=== PATIENT | female | born 1975 | race African-American/Black ===

== ENCOUNTER 2019-12-27 13:41 | Inpatient (IN) | payer BC, OTHER ==
[2019-12-27 15:17] LABS: BHCG - Serum Negative (NEGATIVE); Pregs Control Background? CLEAR/WHITE (CLR/WHITE); Pregs Control Bar Appear? YES (CONTROL BAR)
[2019-12-27 15:26] LABS: ALT (SGPT) 10 U/L (8-55); AST (SGOT) 15 U/L (5-34); Albumin 3.8 g/dL (3.5-5.0); Alkaline Phosphatase 63 U/L (40-110); Anion Gap 15 mmol/L (10-20); BUN (Urea Nitrogen) 14 mg/dL (7.0-18.7); Bilirubin, Total 0.2 mg/dL (0.2-1.2); Calc. Creatinine Clearance 0 mL/min (70-130); Calcium 8.7 mg/dL (7.8-10.44); Carbon Dioxide 21 mmol/L (22-29); Chloride 108 mmol/L (98-107); Estimated GFR-MDRD Greater than 90; Globulin 2.7 g/dL (2.4-3.5); Glucose 96 mg/dL (70-105); Lipase 33 U/L (8-78); Protein, Total 6.5 g/dL (6.0-8.3); Sodium 140 mmol/L (136-145)
[2019-12-27] MEDS ORDERED: Pantoprazole 40 MG VIAL ONE (15:32)
[2019-12-27] MEDS ORDERED: Ondansetron ODT 4 MG TAB PO PRN (15:34)
[2019-12-27] MEDS ORDERED: Senokot S 8.6-50 MG TAB PO PRN (15:34)
[2019-12-27] MEDS ORDERED: Acetaminophen 325 MG TAB PO PRN (15:34)
[2019-12-27] MEDS ORDERED: Calcium Carbonate 500 MG ChewTAB PO PRN (15:34)
[2019-12-27] MEDS ORDERED: Ondansetron PF 4 MG/2 ML Vial IVP PRN (15:34)
[2019-12-27 15:41] LABS: Hemoglobin 4.8 g/dL (12.0-16.0); Mean Corpuscular HGB CONC 30.9 g/dL (32.0-36.0); Mean Corpuscular Hemoglobin 21.4 pg (27.0-31.0); Mean Corpuscular Volume 69.3 fL (78.0-98.0); Mean Platelet Volume 9.4 fL (7.4-10.4); Platelet Count 283 thou/uL (130-400); RBC Distribution Width 18.2 % (11.5-14.5); Red Blood Cell (RBC) Count 2.24 mill/uL (4.20-5.40); White Blood Cell (WBC) Count 12.6 thou/uL (4.8-10.8)
[2019-12-27 15:44] LABS: Reticulocyte Count 6.1 % (0.5-1.5)
[2019-12-27 15:49] LABS: INR-International Normal Ratio 1.1; PTT 26.3 sec (22.9-36.1); Prothrombin Time 14.1 sec (12.0-14.7)
[2019-12-27 16:00] LABS: Iron 8 ug/dL (50-170); Iron Binding Capacity, Total 345 mcg/dL (265-497)
[2019-12-27 16:02] LABS: Anisocytosis SLIGHT = 6-15 cells (100X) (0-5/hpf); Band 4 % (5-11); Eosinophils 2 % (0-10); Hypochromia MODERATE=16-30 cells (100X) (0-5/hpf); Lymphocytes 13 % (21-51); MDiff Complete? YES; Microcytosis MODERATE=15-30 cells (100X) (0-5/hpf); Monocytes 3 % (0-10); Neutrophil 75 % (42-75); Platelet Morphology Comment Appears Adequate; Polychromasia MODERATE = 3-4 cells (100X) (0-2/hpf); Reactive Lymphocytes 3 % (0-10); Reflex for Review?? NO; Target Cells SLIGHT = 2-5 cells (100X) (0-1/hpf); Tear Drops SLIGHT = 2-5 cells (100X) (0-1/hpf)
--- NOTE | 2019-12-27 16:42 | PDOC.HHP ---
Hospitalist HPI - History of Present Illness weakness, abnormal lab values History of Present Illness: PCP: RAJESH Manuel The patient is a 44-year-old female with past medical history significant for hypertension. She was currently not on any blood pressure medications prior to today. She went to her PCP earlier today after she had been having ongoing fatigue with some light headedness and shortness of breath with exertion. She states that this started last week but became more prominent over the past 3 days. She denies chest pain, hematemesis, hematochezia, abdominal pain, bowel or bladder changes. It is questionable whether she had melanotic stools, she does state that they are a little darker than usual this past month. Patient does report taking BC powder for years, sometimes multiple times per day for hip pain. Her last menstrual cycle was on 12/11/2019 and states was a little heavier than usual with more cramping. At her PCP office today blood pressure was elevated and so they started her on hydrochlorothiazide 25 mg daily and also hydroxyzine 50 mg as needed for acute anxiety. She also received a referral to [facility] for a prolonged QT interval and some reports of lightheadedness. After lab work resulted showed her hemoglobin is 4.9 she was asked to report to the ER. ED Course: VITAL SIGNS ThuDec 27, 2019 13:42 ADRIAN Pickering Dannette BP: 132/83, Pulse: 108, Resp: 19, Temp: 98.2 (Oral), O2 sat: 100 on (Room Air), Time: 12/27/2019 13:42. VITAL SIGNS ThuDec 27, 2019 14:02 ADRIAN De La Cruz Taylor BP: 138/76, MAP: 106, Pulse: 102, Resp: 16, Pain: 0, O2 sat: 100 on (Room Air), Time: 12/27/2019 14:02. VITAL SIGNS ThuDec 27, 2019 15:55 ADRIAN De La Cruz Taylor BP: 146/72, MAP: 114, Pulse: 99, Resp: 20, Pain: 0, O2 sat: 100 on (Room Air), Time: 12/27/2019 15:55. VITAL SIGNS ThuDec 27, 2019 16:35 ADRIAN De La Cruz Taylor BP: 164/89, MAP: 112, Pulse: 105, Resp: 16, Pain: 0, O2 sat: 100 on (Room Air), Time: 12/27/2019 16:35. Today in the ER the patient had lab work, EKG, and rectal exam. She had 80 mg of Protonix IV administered and 1 unit of blood. GI was consulted for the patient downstairs. Hospitalist ROS - Review of Systems Constitutional: reports: weakness, malaise Respiratory: reports: SOB with excertion. denies: shortness of breath Cardiovascular: denies: chest pain, palpitations All other systems reviewed; all pertinent +/- noted in HPI/Subj - Medication Medications: NKDA Current medications: BC Headache Powder packet : Strength - 650 mg-195 mg-32 mg : ORAL Patient Dose: UNK 3 times a day.UNKNOWN DOSE Hospitalist History - Past Medical History Source: patient Cardiac: reports: HTN - Past Surgical History Past Surgical History: reports: Tubal Ligation - Family History Family History: reports: cardiac disorder, diabetes mellitus - Social History Smoking Status: Never smoker Alcohol: reports: None Drugs: reports: none Living Situation: With Family Activity level: independent ambulation - Exam General Appearance: NAD, awake alert Eye: PERRL, anicteric sclera ENT: normocephalic atraumatic, no oropharyngeal lesions ENT - other findings: Pale conjunctiva Neck: supple, no lymphadenopathy Heart: RRR, no murmur, no gallops, no rubs, normal peripheral pulses Respiratory: CTAB, no wheezes, no rales, no ronchi, normal chest expansion Gastrointestinal: soft, non-tender, non-distended, normal bowel sounds Extremities: no cyanosis, no clubbing, no edema Skin: normal turgor Neurological: normal sensation to touch, no weakness Musculoskeletal: normal tone, normal strength, no muscle wasting, generalized weakness Psychiatric: normal affect, normal behavior, A&O x 3 Hospitalist Results - Labs Result Diagrams: 12/28/19 03:54 12/28/19 03:54 Lab results: WBC 12.6 thou/uL (4.8-10.8) H 12/27/19 15:29 Hgb 4.8 g/dL (12.0-16.0) L* 12/27/19 15: Hct 15.5 % (36.0-47.0) L 12/27/19 15:29 MCV 69.3 fL (78.0-98.0) L 12/27/19 15:29 Plt Count 283 thou/uL (130-400) 12/27/19 15:29 Band Neuts % (Manual) 4 % (5-11) L 12/27/19 15:29 Sodium 140 mmol/L (136-145) 12/27/19 14:56 Potassium 4.0 mmol/L (3.5-5.1) 12/27/19 14:56 Chloride 108 mmol/L (98-107) H 12/27/19 14:56 Carbon Dioxide 21 mmol/L (22-29) L 12/27/19 14:56 BUN 14 mg/dL (7.0-18.7) 12/27/19 14:56 Creatinine 0.71 mg/dL (0.6-1.1) 12/27/19 14:56 Glucose 96 mg/dL (70-105) 12/27/19 14:56 Calcium 8.7 mg/dL (7.8-10.44) 12/27/19 14:56 Total Bilirubin 0.2 mg/dL (0.2-1.2) 12/27/19 14:56 AST 15 U/L (5-34) 12/27/19 14:56 ALT 10 U/L (8-55) 12/27/19 14:56 Alkaline Phosphatase 63 U/L (40-110) 12/27/19 14:56 Troponin I Less than 0.010 ng/mL (< 0.028) 12/27/19 15:29 Serum Total Protein 6.5 g/dL (6.0-8.3) 12/27/19 14:56 Albumin 3.8 g/dL (3.5-5.0) 12/27/19 14:56 Lipase 33 U/L (8-78) 12/27/19 14:56 - EKG Interpretation EKG: Sinus tachycardiareviewed by me - Radiology Interpretation Chest x-ray Status: image reviewed by me Additional Comment: No infiltrate or edema Hospitalist H&P A/P - Problem (1) GI bleed Code(s): K92.2 - GASTROINTESTINAL HEMORRHAGE, UNSPECIFIED Status: Acute (2) Acute blood loss anemia Code(s): D62 - ACUTE POSTHEMORRHAGIC ANEMIA Status: Acute (3) Iron deficiency anemia Code(s): D50.9 - IRON DEFICIENCY ANEMIA, UNSPECIFIED Status: Acute (4) HTN (hypertension) Code(s): I10 - ESSENTIAL (PRIMARY) HYPERTENSION Status: Chronic - Plan Plan: Possible GI bleed FOBT pending GI consultation placed in ER Monitor on telemetry N.p.o. Acute blood loss anemia Iron deficiency anemia 2 units packed cells transfusing IV iron to transfuse IV fluids CBC smear, repeat CBC in a.m. Hypertension Monitor vital signs every 4 hour PRN antihypertensives to be made available GI prophylaxis with Protonix, VTE prophylaxis with SCDs CODE STATUS: Full Surrogate decision maker is her sister, Elaine Hinkle Addendum - Attending - Attending Attestation Date/Time: 12/27/19 1800 Patient is a 44-year-old female with chronic NSAID use presents to the emergency room with with abnormal labs. Her hemoglobin as outpatient was around 4. Over the last 1 month patient has dark bowel movement. She has been feeling generally weak and fatigue. No menorrhagia reported. She denies any family history of anemia or sickle cell anemia. No fever or chills reported. Her hemoglobin in the emergency room was 4.8 with reticulocyte of 6.1 iron of 8 and ferritin of < 2. Due to poor IV access central line was placed in the emergency room. 2 units of PRBC has been ordered. Past medical history reviewed. Mary ient currently on no medications. Denies any tobacco or drug abuse. Vital signs were reviewed on examination lungs were clear to auscultation bilaterallyheart S1-S2 present tachycardia. Neurological examination was nonfocal. EKG showed sinus tachycardia with nonspecific ST-T wave changes. Due to persistent tachycardia patient will be monitored on telemetry. Will continue IV PPIs with gentle hydration. Continue blood transfusion. Peripheral smear review. Recheck hemoglobin in a.m. Transfuse if below 7 patient will require 2-3 days for stabilization I personally evaluated the patient and discussed the management with Nurse practitioner. I agree with the History, Examination, Assessment and Plan documented above with any addition or exceptions noted below.
[2019-12-27] MEDS ORDERED: Lorazepam 1 MG TAB PO SCH (17:30)
--- NOTE | 2019-12-27 18:10 | RAD ---
CHEST ONE VIEW: 12/27/19 HISTORY: Line placement. FINDINGS: Portable supine chest radiograph demonstrates interval placement of left sided vascular catheter. Dis fiordaliza tip appears to terminate over the region of the superior vena cava. Correlate clinically for veno us access. No pneumothorax on the supine projection. Lung volumes are diminished due to poor inspirat ory effort. There does appear to be interstitial opacification in the right perihilar region. IMPRESSION: 1. Left sided vascular catheter as above. Correlate for venous access. 2. No pneumothorax on this supine projection. 3. Diminished lung volumes. Prominence of the interstitium in the right perihilar region may in part be due to atelectasis. Infiltrate cannot be excluded. POS: PPP
[2019-12-27] MEDS ORDERED: Iron, Sodium Ferric Gluconate 250 MG in Sodium Chloride 0.9% 100 ML IVPB SCH (21:00)
[2019-12-27] MEDS: Sodium Chloride 0.9% 1,000 ML IV SCH (21:19)
[2019-12-27] MEDS: Pantoprazole 40 MG VIAL IVP SCH (21:19)
--- NOTE | 2019-12-28 00:31 | CON ---
DATE OF CONSULTATION: 12/27/2019 CHIEF COMPLAINT: Weakness and fatigue. HISTORY OF PRESENT ILLNESS: Ms. Hinkle is a 44-year-old woman, who has had generalized weakness on exertion over the last couple of months. Over the last two days, she has had dizziness and lightheadedness and shortness of breath just walking across the room. She has passed black stools up to twice per day to once every 2 days over the last couple months. She has no abdominal pain or nausea or vomiting or diarrhea or constipation. She has had no red blood in the stool. She has been taking BC Powder three per day for years for left hip pain. She has regular menstrual periods once per month, they last 4 days and have not been heavy. She has not seen a Gynecology over last 20 years. In the emergency room, she was found to have severe anemia with a hemoglobin of 4.8. She was given blood transfusion and proton pump inhibitor. GI was consulted for further evaluation. She does get cramping lower abdominal pain when she has her menstrual periods, but otherwise no abdominal pain. This has been going on for the last 3 months. PAST MEDICAL HISTORY: Hypertension and hip pain. PAST SURGICAL HISTORY: Tubal ligation. FAMILY HISTORY: Negative for GI malignancies. SOCIAL HISTORY: No alcohol, tobacco, or drugs. ALLERGIES: NO KNOWN DRUG ALLERGIES. MEDICATIONS: Prior to admission, BC Powder three times daily. REVIEW OF SYSTEMS: Negative x10 systems reviewed except as stated in the history of present illness. PHYSICAL EXAMINATION: VITAL SIGNS: Temperature 99.4, blood pressure 152/88, and pulse 109. GENERAL: She is in no acute distress. Alert and oriented x3. She is pale. HEENT: Her eyes have no scleral icterus. Oropharynx is clear without lesions. No cervical or supraclavicular lymphadenopathy. LUNGS: Clear to auscultation bilaterally. HEART: Tachycardic. S1 and S2 without murmur. ABDOMEN: Soft, nontender, and nondistended. Bowel sounds are present. EXTREMITIES: No lower extremity edema. RECTAL: Reveals melenic stool in the rectal vault. She has an external hemorrhoid present. NEUROLOGIC: Cranial nerves are grossly intact. LABORATORY DATA: White blood cell count 12.6, hemoglobin 4.8, and platelets 283. INR 1.1. Creatinine 0.71. Iron 8, TIBC 345, ferritin 2, bilirubin 0.2, AST 15, ALT 10, alkaline phosphatase 63, albumin is 3.8, and lipase 33. Retic count is 6.1 and MCV is 69. IMPRESSION: Severe iron deficiency anemia. She has been on BC Powder up to three times per day for chronic left hip pain. She most likely has an upper gastrointestinal bleed secondary to peptic ulcer. We will evaluate for this and other sources. She does have regular menstrual periods that have not been heavier than usual lately. She has melena and melenic stool in the rectal vault. RECOMMENDATIONS: 1. Transfusion. She will be given 3 units. 2. Proton pump inhibitor IV. 3. EGD is scheduled for tomorrow morning at 8 o'clock. Job ID: [id number]
[2019-12-28 00:52] VITALS: BMI 41.8
[2019-12-28 04:22] LABS: Anisocytosis SLIGHT = 6-15 cells (100X) (0-5/hpf); Eosinophils 1 % (0-10); Hemoglobin 6.8 g/dL (12.0-16.0); Lymphocytes 20 % (21-51); MDiff Complete? YES; Mean Corpuscular HGB CONC 32.3 g/dL (32.0-36.0); Mean Corpuscular Hemoglobin 24.5 pg (27.0-31.0); Mean Corpuscular Volume 75.9 fL (78.0-98.0); Mean Platelet Volume 9.3 fL (7.4-10.4); Microcytosis SLIGHT = 6-15 cells (100X) (0-5/hpf); Monocytes 2 % (0-10); Neutrophil 77 % (42-75); Platelet Count 258 thou/uL (130-400); RBC Distribution Width 19.4 % (11.5-14.5); Red Blood Cell (RBC) Count 2.78 mill/uL (4.20-5.40)
[2019-12-28 04:30] LABS: Anion Gap 11 mmol/L (10-20); BUN (Urea Nitrogen) 12 mg/dL (7.0-18.7); Calc. Creatinine Clearance 186 mL/min (70-130); Calcium 8.1 mg/dL (7.8-10.44); Carbon Dioxide 24 mmol/L (22-29); Chloride 109 mmol/L (98-107); Estimated GFR-MDRD Greater than 90; Glucose 85 mg/dL (70-105); Potassium 3.6 mmol/L (3.5-5.1); Sodium 140 mmol/L (136-145)
[2019-12-28] MEDS: Sodium Chloride 0.9% 1,000 ML IV SCH ×3 (05:45→19:50)
[2019-12-28] MEDS ORDERED: Ondansetron HCl/PF 4 MG/2 ML Vial IVP PRN (08:35)
[2019-12-28] MEDS ORDERED: Promethazine HCl 25 MG/ML VIAL SLOW IVP PRN (08:35)
[2019-12-28] MEDS ORDERED: Promethazine HCl 25 MG/ML VIAL IM PRN (08:35)
[2019-12-28] MEDS ORDERED: HYDROmorphone 2 MG/ML VIAL SLOW IVP PRN (08:35)
[2019-12-28] MEDS ORDERED: cloNIDine 0.1 MG TAB PO PRN (08:35)
[2019-12-28] MEDS: Pantoprazole 40 MG VIAL IVP SCH ×2 (09:20→19:45)
--- NOTE | 2019-12-28 09:30 | PDOC.HOSPP ---
- Subjective Encounter Date: 12/28/19 Encounter Time: 09:29 Subjective: Patient has just returned from her EGD. They were able to locate and cauterize an ulcer per nursing. She is still sleepy but states she feels "ok". She received a total of 3 units of PRBC last night. - Objective Vital Signs & Weight: Vital Signs (12 hours) Temp Pulse Resp BP Pulse Ox 12/28/19 09:21 98.0 F 84 20 131/67 100 12/28/19 07:26 98.1 F 88 15 161/96 H 96 12/28/19 05:39 98.4 F 70 18 143/84 H 99 12/28/19 05:06 98.6 F 89 18 135/88 99 12/28/19 00:25 99.0 F 98 18 152/91 H 100 Weight Weight 259 lb 1 oz I&O: 12/27/19 12/28/19 12/29/19 06:59 06:59 06:59 Intake Total 0 Balance 0 Result Diagrams: 12/28/19 16:14 12/28/19 03:54 Additional Labs: Laboratory Tests 12/27/19 12/27/19 15:29 15:29 Iron 8 L TIBC 345 Ferritin Less than 2.00 L Laboratory Tests 12/27/19 12/28/19 15:29 03:54 Hgb 4.8 L* 6.8 L Radiology Reviewed by me: Yes (Chest x-ray negative for infiltrate) EKG Reviewed by me: Yes (Sinus rhythm on telemetry) Hospitalist ROS - Review of Systems Respiratory: reports: SOB with excertion. denies: cough, dry, shortness of breath, hemoptysis, pleuritic pain, sputum, wheezing, other Cardiovascular: denies: chest pain, palpitations, orthopnea, paroxysmal noc. dyspnea, edema, light headedness, other All other systems reviewed; all pertinent +/- noted in HPI/Subj - Medication Medications: Active Medications Generic Name Dose Route Start Last Admin Trade Name Freq PRN Reason Stop Dose Admin Acetaminophen 650 mg 12/27/19 15:34 12/27/19 21:36 Acetaminophen 325 Mg Tab PO 650 mg Q4H PRN Administration Headache/Fever/Mild Pain (1-3) Sodium Chloride 1,000 mls @ 75 mls/hr 12/27/19 15:45 12/28/19 05:45 Normal Saline 0.9% IV Not Given .[id number] ZACARIAS Pantoprazole Sodium 40 mg 12/27/19 21:00 12/28/19 09:20 Pantoprazole 40 Mg Vial IVP 40 mg Q12HR ZACARIAS Administration - Exam General Appearance: NAD General - other findings: sleepy Heart: RRR, no murmur, no gallops, no rubs Respiratory: CTAB, no wheezes, no rales, no ronchi Gastrointestinal: soft, non-tender, non-distended, normal bowel sounds Extremities: no cyanosis, no clubbing Neurological: normal sensation to touch, no new deficit Psychiatric: normal affect, A&O x 3 Hosp A/P (1) GI bleed Code(s): K92.2 - GASTROINTESTINAL HEMORRHAGE, UNSPECIFIED Status: Acute (2) Acute blood loss anemia Code(s): D62 - ACUTE POSTHEMORRHAGIC ANEMIA Status: Acute (3) Iron deficiency anemia Code(s): D50.9 - IRON DEFICIENCY ANEMIA, UNSPECIFIED Status: Acute (4) HTN (hypertension) Code(s): I10 - ESSENTIAL (PRIMARY) HYPERTENSION Status: Chronic (5) Peptic ulcer disease with hemorrhage Code(s): K27.4 - CHRONIC OR UNSP PEPTIC ULCER, SITE UNSP, WITH HEMORRHAGE Status: Acute (6) Morbid obesity with BMI of 40.0-44.9, adult Code(s): E66.01 - MORBID (SEVERE) OBESITY DUE TO EXCESS CALORIES; Z68.41 - BODY MASS INDEX (BMI) 40.0-44.9, ADULT Status: Acute - Plan Will follow H&H to ensure she maintains levels Monitor for further bleeding Monitor VS- stable at this time Allow to progress as tolerated with diet Addendum - Attending - Attending Attestation Date/Time: 12/28/19 183 Patient underwent EGD earlier today that showed large cratered 1.5 to 2 cm duodenal bulb ulcer with active oozing of blood. This was cauterized with good hemostasis. H. pylori testing was sent. Hemoglobin this morning was 6.8. She received another unit of PRBC today. She also received iron infusion last night. Will transfer to medical floor. Continue IV PPIs. Central line for blood draws. Recheck hemoglobin in a.m. Continue other medications as above. Patient was seen and examined. Lungs were clear to auscultation bilaterally. Heart S1-S2 present regular. Abdomen was soft. Left findings were reviewed. I personally evaluated the patient and discussed the management with nurse practitioner. I agree with the History, Examination, Assessment and Plan documented above with any addition or exceptions noted below.
--- NOTE | 2019-12-28 09:41 | OP ---
DATE OF PROCEDURE: 12/28/2019 PROCEDURE PERFORMED: Esophagogastroduodenoscopy with control of hemorrhage and biopsy. INDICATION FOR PROCEDURE: Melena, anemia. DESCRIPTION OF PROCEDURE: After the risks and benefits of the procedure were explained to the patient including risks of bleeding, infection, perforation, reactions to anesthesia, aspiration, and/or pain, informed consent was obtained. The patient was then taken to the endoscopy suite, where she was maneuvered into the left lateral decubitus position, followed by introduction of deep sedation via propofol and anesthesia support. Once adequate sedation was achieved, the standard gastroscope was introduced into the mouth with intubation of the esophagus, stomach, and the proximal small intestines with the findings listed below. The patient tolerated the procedure well with no immediate perioperative complications. Upon conclusion of the procedure, all equipment was removed from the patient and she was transferred to PACU in satisfactory condition. FINDINGS: Esophagus: Normal-appearing mucosa was seen in the proximal, mid, and distal esophagus. There was no evidence of erosions, ulcerations, mass lesions, or active/recent bleeding. Stomach: Normal-appearing mucosa was seen in the gastric cardia at the gastroesophageal junction, fundus, body, greater curvature, and incisura. Increased edema was noted in the prepyloric region and including the pyloric valve, but there were no associated erosions or ulcerations in this particular region. Otherwise, there was no evidence of erosions, ulcerations, mass lesions, or active/recent bleeding. Duodenum: A large cratered ulceration measuring 1.5 to 2 cm was seen immediately upon entry into the duodenal bulb and involving the anterior wall and extending to the distal aspect of the bulb itself, but marginally extending into the second portion of the duodenum/duodenal sweep. The ulcer itself exhibited high-risk stigmata with multiple areas of red spots along with significant erythema along the rim of the ulceration. However, along the distal aspect of the ulcer, active oozing of blood was noted from multiple sites. The high-risk stigmata and these active oozing of bleeding sites were then intervened upon with bipolar cauterization with good hemostasis achieved. There was no bleeding noted at the end of the maneuver. Upon entry into the second portion of the duodenum, normal-appearing mucosa was observed distal to the ulceration. IMPRESSION: 1. A large cratered 1.5 to 2 cm duodenal bulb ulceration was seen with high-risk stigmata and active oozing of blood, now status post bipolar cauterization with good hemostasis achieved. 2. Despite normal-appearing gastric mucosa, random gastric biopsies were taken for evaluation of possible H pylori. RECOMMENDATIONS: 1. Would continue to trend her H and H and transfuse as necessary to maintain an H and H of 10/17. 2. Continue to monitor clinically for signs of active GI bleeding. 3. Would follow up on the biopsy results for possible H pylori and treat with triple therapy if positive. 4. Would refrain from any NSAIDs indefinitely. 5. Continue pantoprazole 40 mg IV b.i.d. 6. Would start the patient on a full liquid diet and then advance as tolerated after 24 hours. 7. Pain control per primary team. We will continue to follow. Please call with any questions. Job ID: [id number]
[2019-12-28] MEDS ORDERED: Ondansetron PF 4 MG/2 ML Vial ONE (10:41)
[2019-12-28] MEDS ORDERED: Labetalol HCl 100 MG/20 ML VIAL ONE (10:41)
[2019-12-28] MEDS ORDERED: PROPOFOL 200 MG/20 ML VIAL ONE (10:41)
[2019-12-28] MEDS ORDERED: Lidocaine 1% PF 5 ML VIAL ONE (10:41)
[2019-12-28 13:15] LABS: SARS-CoV-2 MS2 Positive; SARS-CoV-2 N Gene Negative; SARS-CoV-2 S Gene Negative; SARS-CoV-2 by NAA Not Detected (NotDetected); SARS-CoV-2 orf1ab Negative
[2019-12-28 16:24] LABS: Hemoglobin 7.8 g/dL (12.0-16.0)
[2019-12-29 05:02] LABS: Hemoglobin 7.6 g/dL (12.0-16.0)
[2019-12-29] MEDS: Pantoprazole 40 MG VIAL IVP SCH (08:49)
[2019-12-29 12:03] VITALS: BP 141/86; TEMP 98.4
--- NOTE | 2019-12-29 15:38 | DIS ---
DATE OF ADMISSION: 12/27/2019 DATE OF DISCHARGE: 12/29/2019 DISCHARGE DISPOSITION: Home. FOLLOWUP: 1. Follow up with primary care physician in the next 3 to 4 days. 2. Follow up with GI Clinic in 1 to 2 weeks. 3. Follow up with Hematology Clinic after 1 to 2 weeks. 4. Repeat hemoglobin and hematocrit next week is recommended. Primary care physician advised to follow. The patient was seen and examined on the day of discharge. Denies any new GI bleeding. SIGNIFICANT LABORATORY DATA: 1. Hemoglobin on admission was 4.8, at discharge was 7.6. 2. PT/INR, PTT normal range. 3. Iron profile showed iron of 8, TIBC 345, ferritin of less than 2. 4. Troponin was negative. 5. test was negative. 6. COVID-19 testing was negative. 7. Stool for occult blood was negative. 8. Reticulocyte 6.1. INPATIENT PROCEDURES: On 28 December 2019, the patient underwent EGD that showed large cratered 1.5 to 2 cm duodenal bulb ulceration with high-risk stigmata and active oozing of blood, status post cauterization. Random gastric biopsies were obtained. Gastric mucosa was normal. DISCHARGE MEDICATIONS: 1. Protonix 40 mg b.i.d. 2. Ferrous sulfate 325 mg b.i.d. 3. Other medications were left unchanged. 4. The patient was advised to discontinue NSAIDs. BRIEF HOSPITAL COURSE: The patient is a 44-year-old female with chronic NSAID use, presented to the emergency room with generalized weakness and abnormal labs. She was found to have hemoglobin around 4. She also reported dark bowel movement over the last month or so. Please refer to the history and physical for further details. The patient was admitted to the hospital with a diagnosis of GI bleeding secondary to GI blood loss. She received total of 3 units of PRBC along with 1 bag of IV iron. She underwent EGD as discussed above. She has done well overnight. She was started on IV PPIs on admission that has been transitioned to oral. The patient has been cleared by Gastroenterology for discharge. FINAL DIAGNOSES: 1. GI bleeding secondary to large duodenal ulcer with active bleeding. 2. Acute blood loss anemia. 3. Iron deficiency anemia. 4. Hypertension. 5. Morbid obesity with a BMI of 41.8. 6. Generalized weakness and fatigue secondary to above. 7. Hypochromic microcytic anemia secondary to iron deficiency. The patient understands the above plan of care. Job ID: [id number]
--- NOTE | 2019-12-30 05:06 | PRG ---
DATE OF SERVICE: 12/29/2019 SUBJECTIVE: Ms. Hinkle has had no further bleeding. Last was last night. She has been to go to the bathroom without being dizzy or weak. She is tolerating a regular diet. Medications; she is on pantoprazole 40 mg p.o. b.i.d. now. OBJECTIVE: VITAL SIGNS: Temperature is 98, pulse 91, blood pressure 141/86. ABDOMEN: Soft and nontender. LUNGS: Clear. HEART: Regular rate and rhythm without clicks or murmurs. LABORATORY DATA: Hemoglobin 7.6, it was 6.8 yesterday. She has received transfusion of 1 unit of blood on the . BUN and creatinine are 12 and 0.7. Electrolytes are normal. ASSESSMENT: 1. Upper gastrointestinal hemorrhage with duodenal ulcer likely related to NSAIDs. She was taking BC powder. 2. Chronic hip pain. 3. Helicobacter pylori, biopsies pending. RECOMMENDATIONS: 1. I think she can go home with oral iron and stool softeners. 2. She is to be on a PPI b.i.d. for 14 days, then daily. 3. She is to follow up in our office in 1 to 2 weeks, go over her H pylori biopsies, make sure she is doing well. 4. Precautions for anemia and bleeding were discussed with the patient and family member in detail. 5. She needs to avoid all NSAIDs, can only take [id number] Tylenol for pain. Job ID: [id number]
--- NOTE | 2020-01-04 13:09 | EKG ---
Test Reason : WEAKNESS Blood Pressure : / mmHG Vent. Rate : 102 BPM Atrial Rate : 102 BPM P-R Int : 184 ms QRS Dur : 076 ms QT Int : 354 ms P-R-T Axes : 058 040 043 degrees QTc Int : 461 ms Sinus tachycardia Otherwise normal ECG Confirmed by JOSÉ MANUEL WOODRUFF ([id number]), website/blog editor HALINA ORTEGA ([id number] on 01/04/2020 1:08:53 PM Referred By: Confirmed By:JOSÉ MANUEL WOODRUFF
== END 2019-12-29 14:15 | disposition home or self-care (01) | DRG 378 ==
LOC: ERS 13:41 → 2NO 16:07 → ONC 12-28 18:22
PROVIDERS: ADMIT Internal Medicine; ATTEND Internal Medicine
PROC: 0W3P8ZZ Control Bleeding in Gastrointestinal Tract, Via Natural or Artificial Opening Endoscopic (ICD-10-PCS; principal; 2019-12-28)
PROC: 0DB68ZX Excision of Stomach, Via Natural or Artificial Opening Endoscopic, Diagnostic (ICD-10-PCS; 2019-12-28)
DX: K26.4 Chronic or unspecified duodenal ulcer with hemorrhage (principal); D62 Acute posthemorrhagic anemia; Z68.41 Body mass index [BMI] 40.0-44.9, adult; I10 Essential (primary) hypertension; D50.9 Iron deficiency anemia, unspecified; E66.01 Morbid (severe) obesity due to excess calories; Z20.828 Contact with and (suspected) exposure to other viral communicable diseases; Z98.51 Tubal ligation status
CPT/HCPCS: 36415; 36430; 36556; 71045; 80048; 80053; 82274; 82728; 83540; 83550; 83690; 83880; 84443; 84484; 84703; 85007; 85014; 85018; 85025; 85027; 85046; 85060; 85610; 85730; 86850; 86900; 86901; 87635; 88305; 88312; 93005; 96365; C9113; J2405; J2704; J2916; J3490; P9016; U0003

== ENCOUNTER 2020-05-24 09:48 | Outpatient (CLI) | payer BC ==
--- NOTE | 2020-05-24 12:03 | MRI ---
MR the lumbar spine without contrast: 05/24/2020 History: Lumbar radiculopathy, pain radiating down the left leg COMPARISON: None. TECHNIQUE: Multiplanar multisequence MR images were obtained of lumbar spine without IV contrast FINDINGS: On the basis of 5 lumbar type vertebral bodies, conus medullaris terminates at theL2 level. Sagittal STIR imaging demonstrates no focal area of osseous marrow edema. T12-L1:Bilateral facet hypertrophy and hypertrophy of the ligamentum flavum with no significant centr al canal or neural foraminal stenosis. L1-2:Bilateral facet hypertrophy and hypertrophy of the ligamentum flavum. Intervertebral disc height and signal intensity within normal limits with no significant central canal or neural foraminal stenosis. L2-3:Bilateral facet hypertrophy and hypertrophy of the ligamentum flavum. Intervertebral disc height and signal intensity appears within normal limits with no significant central canal or neural foraminal stenosis. L3-4:Bilateral facet hypertrophy and hypertrophy of the ligamentum flavum. No significant central can al or neural foraminal stenosis. L4-5:Bilateral facet hypertrophy. There is disc desiccation and mild disc bulge. No significant centr al canal or neural foraminal stenosis. L5-S1:There is disc space narrowing with disc desiccation and disc bulge. There is a left paracentral disc extrusion with inferior migration measuring approximately 1 cm in craniocaudal dimension, 1 cm in transverse dimension, and 7 mm in AP dimension causing left lateral recess stenosis abutting th e nerve roots laterally, including the left S1 and S2 nerve roots. On the basis of facet disease there is moderate left and mild right neural foraminal stenosis. Image retroperitoneal structures demonstrateno acute findings. 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
== END 2020-05-24 09:49 | disposition home or self-care (01) ==
LOC: BICMRI 09:48
PROVIDERS: ATTEND Nurse Practitioner Family
DX: M47.26 Other spondylosis with radiculopathy, lumbar region (principal); M51.16 Intervertebral disc disorders with radiculopathy, lumbar region; M47.27 Other spondylosis with radiculopathy, lumbosacral region; M48.07 Spinal stenosis, lumbosacral region
CPT/HCPCS: 72148

== ENCOUNTER 2022-05-14 15:35 | Emergency (ER) | payer BC ==
[2022-05-14 16:59] LABS: #Eosinphils 0.2 thou/uL (0.0-0.7); #Lymphocytes 2.1 thou/uL (1.20-3.40); #Monocytes 0.8 thou/uL (0.11-0.59); %Basophils 0.3 % (0.0-1.0); %Lymphocytes 25.8 % (21.0-51.0); %Monocytes 9.3 % (0.0-10.0); %Neutrophils 62.7 % (42.0-75.0); Hemoglobin 13.4 g/dL (12.0-16.0); Mean Corpuscular HGB CONC 31.7 g/dL (32.0-36.0); Mean Corpuscular Hemoglobin 25.5 pg (27.0-31.0); Mean Corpuscular Volume 80.4 fl (78.0-98.0); Mean Platelet Volume 10.7 fL (7.4-10.4); Platelet Count 196 10x3/uL (130-400); RBC Distribution Width 15.7 % (11.5-14.5); Red Blood Cell (RBC) Count 5.26 mill/uL (4.20-5.40)
[2022-05-14 17:15] LABS: Acetaminophen Less than 10.0 mcg/mL (10.0-30.0); Alcohol Less than 10 mg/dL (Less than 10); Salicylate Less than 8.0 mg/dL (15.0-30.0)
[2022-05-14 17:18] LABS: ALT (SGPT) 20 U/L (8-55); AST (SGOT) 24 U/L (5-34); Albumin 4.2 g/dL (3.5-5.0); Alkaline Phosphatase 81 U/L (40-110); Anion Gap 14 mmol/L (10-20); BUN (Urea Nitrogen) 13 mg/dL (7.0-18.7); Bilirubin, Total 0.5 mg/dL (0.2-1.2); Calc. Creatinine Clearance 0 mL/min (70-130); Calcium 9.9 mg/dL (7.8-10.44); Carbon Dioxide 26 mmol/L (22-29); Chloride 104 mmol/L (98-107); Estimated GFR 72; Globulin 3.8 g/dL (2.4-3.5); Glucose 102 mg/dL (70-105); Potassium 3.5 mmol/L (3.5-5.1); Sodium 140 mmol/L (136-145)
== END 2022-05-14 19:59 | disposition left against medical advice (07) ==
LOC: ERS 15:35
DX: Z53.29 Procedure and treatment not carried out because of patient's decision for other reasons (principal)
CPT/HCPCS: 36415; 71045; 80053; 80307; 84443; 84484; 85025; 93005